=== PATIENT | male | born 1980 | race African-American/Black ===

== ENCOUNTER 2023-02-12 14:12 | Emergency (ER) | payer BC, SELFPAY ==
[2023-02-12 14:12] VITALS: BP 123/84; PULSE 64; RESP 30; O2SAT 98
[2023-02-12] MEDS: ASPIRIN 81 MG CHEWABLE TABLET 324 MG PO (14:20)
[2023-02-12] MEDS: ONDANSETRON INJ 4 MG/2 ML VIAL 8 MG IM (14:20)
--- NOTE | 2023-02-12 14:28 | ED.GENADULT ---
HPI - General Adult General Stated complaint: breathing prob, heart attack Source: patient Mode of arrival: wheelchair Limitations: clinical condition History of Present Illness HPI narrative: Patient presents for evaluation of chest pain. Symptom onset 30 minutes ago. 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 He developed chest tightness, shortness of breath, muscle spasms and sensation that his body was locking up . He has not provider within numerical rating his pain but states that feels like it is ?having a heart attack?. No history of similar symptoms. Reports marijuana use but denies illicit drug use. No underlying history of hypertension, hyperlipidemia, diabetes. He does not smoke. On arrival into the facility he is diaphoretic and pale. Related Data Home Medications Medication Instructions Recorded Confirmed No Home Medications 02/12/23 02/12/23 Allergies Allergy/AdvReac Type Severity Reaction Status Date / Time No Known Allergies Allergy Verified 02/12/23 14:29 Review of Systems Review of Systems: CONSTITUTIONAL: Denies fever, chills, or sweats. EYES: Denies visual changes, redness, or discharge. ENT: Denies rhinorrhea, congestion, sore throat, or otalgia. CARDIOVASCULAR: Reports chest pain. Denies palpitations or edema. RESPIRATORY: Reports shortness of breath. Denies cough. GASTROINTESTINAL: Denies abdominal pain, nausea, vomiting, or diarrhea. GENITOURINARY: Denies dysuria or hematuria. SKIN: Denies rash or itching. MUSCULOSKELETAL: Reports muscle spasms and his body ?locking up?. NEUROLOGIC: Denies headache, numbness, dizziness, or weakness. PSYCHIATRIC: Denies anxiety or depression. [facility] Past Medical History Medical History No pertinent past medical history Surgical History Surgical History No pertinent past surgical history Family History Family History (Updated 02/12/23 @ 14:33 by DIAZ Carbajal, ) Mother Family history non-contributory Social History Social History Substance use: current Substance use type: marijuana Additional occupation/education comments: construction Gender identity (if verbalized by the patient): Male Spiritual care concerns: No Exam Narrative: GENERAL: Appears acutely ill and mild to moderate distress, diaphoretic. HEAD: Normocephalic, atraumatic. EYES: PERRLA and EOMI. ENT: Nares clear, no rhinorrhea or epistaxis. Mucous membranes moist. Oropharynx without tonsillar hypertrophy exudate or other lesions. Bilateral TMs pearly jenkins nonbulging NECK: Supple. No adenopathy or masses. No carotid bruits or JVD CHEST: Clear to auscultation. No respiratory distress. No wheezes rales or rhonchi HEART: Regular rate and rhythm. No murmur heard. Normal peripheral pulses. ABDOMEN: Soft, nontender, nondistended, normal active bowel sounds. EXTREMITIES: Normal range of motion. No edema. SKIN: Generalized pallor. NEURO: No focal deficits. Alert and oriented x3. PSYCH: Normal mood and affect. Course Course Emergency Course: This is a 42-year-old male who presented for evaluation of chest pain. On arrival to the facility he was diaphoretic. He began projectile vomiting. We contacted EMS. EKG did not show any gross abnormalities consistent with acute ischemic changes. Pt was given 8 mg zofran IM and 324 mg ASA. I contacted [facility], per pt preferences, and spoke with MARVIN Little. She indicated that Dr Vargas would agree to accept pt to the Dept there. Pt was updated regarding plan of care including plans for transfer. Level of Care: Express Care Visit Medical Decision Making ECG Data EKG #1: ECG completion date: 02/12/23 ECG completion time: 14:19 Interpretation: Sinus tachycardia,
--- NOTE | 2023-02-12 15:03 | ECG_ITS ---
Measurements Intervals [place] Rate: 115 P: 115 NC: 140 QRS: -7 QRSD: 96 T: 90 QT: 341 QTc: 473 Interpretive Statements SINUS TACHYCARDIA ARTIFACT SIGNIFICANTLY LIMITS INTERPRETATION LEFT ATRIAL ENLARGEMENT [-0.15mV P WAVE IN V1/V2] POSSIBLE RIGHT VENTRICULAR CONDUCTION DELAY [RSR (QR) IN V1/V2] NONSPECIFIC ST ELEVATION [0.05+ mV ST ELEVATION] NONSPECIFIC T-WAVE ABNORMALITY ABNORMAL ECG INTERPRETATION BASED ON A DEFAULT AGE OF 41 YEARS NO PREVIOUS ECG AVAILABLE FOR COMPARISON Electronically Signed On 02-13-2023 10:01:48 CDT by Thompson Coello M.D.
== END 2023-02-12 14:25 | disposition short-term general hospital (02) ==
PROVIDERS: Emergency Provider Nurse Practitioner
DX: R07.9 Chest pain, unspecified (principal); F12.90 Cannabis use, unspecified, uncomplicated
CPT/HCPCS: 93005; 96372; 99215; A9270; G0463; J2405